=== PATIENT | male | born 1990 | race African-American/Black ===

== ENCOUNTER 2018-02-25 15:32 | Emergency (ER) | payer OTHER ==
[2018-02-25] MEDS ORDERED: Morphine INJ* 4 MG/ML 1 ML CARPUJECT IV ONE (17:54)
[2018-02-25] MEDS ORDERED: Ondansetron ODT TAB* 4 MG SL ONE (17:54)
[2018-02-25] MEDS ORDERED: Morphine VIAL* 4 MG/ML VIAL (1 ml vial) IV ONE (18:23)
[2018-02-25] MEDS ORDERED: Vancomycin(*) 1,250 MG in NS 0.9% 250 ML* 250 ML IVPB ONE (18:44)
[2018-02-25] MEDS ORDERED: NS 0.9% 1000 ML* 3,000 ML IV ONE (18:44)
--- NOTE | 2018-02-25 18:48 | RAD ---
Indication: Left leg edema and pain.. Duplex Doppler sonography of the deep venous system of the left lower extremity deep venous system was performed. Bilaterally the common femoral veins appear patent and compressible. Left proximal greater saphenous vein, proximal deep femoral vein, femoral vein, popliteal vein, posterior tibial veins and peroneal veins appear patent and compressible. IMPRESSION: NO EVIDENCE OF DEEP VENOUS THROMBOSIS IS IDENTIFIED.
[2018-02-25 18:58] LABS: ABS Basophils 0 10^3/ul (0-0.2); ABS Eosinophils 0.2 10^3/ul (0-0.6); ABS Lymphocytes 1.4 10^3/ul (1.0-4.8); ABS Monocytes 1.3 10^3/ul (0-0.8); ABS Neutrophils 9.7 10^3/ul (1.5-7.7); ABS Nucleated RBC 0 10^3/ul; Eosinophil % 1.8 % (0-6); Hematocrit 29 % (42-52); Hemoglobin 9.9 g/dl (14.0-18.0); Lymphocyte % 11.4 % (25-47); Mean Corpuscular HGB Conc 34 g/dl (31-36); Mean Corpuscular Hemoglobin 30 pg (27-31); Mean Corpuscular Volume 90 fL (80-94); Mean Platelet Volume 7.8 um3 (7.4-10.4); Nucleated Red Blood Cells % 0; Platelet Count 439 10^3/ul (150-450); Red Blood Count 3.26 10^6/ul (4.0-5.4); Red Cell Distribution Width 14 % (10.5-15); White Blood Count 12.7 10^3/ul (3.5-10.8)
--- NOTE | 2018-02-25 19:02 | ED ---
Jose Isaacs Stephanie, scribed for Aniceto Ch MD on 02/25/18 at 1805 . HPI Febrile Illness - HPI Summary HPI Summary: The pt is a 27 y/o M [facility] correctional officers to the ED with c/o fever that began over the past few days. Symptoms include chills, L calf pain and L knee pain. Pt states he feels like his leg is in a microwave. He denies CP and SOB. The pt had ACL repair surgery on 02/18/18. There are dave and 2 incisions at surgical site. He states his surgery was completed at [facility]. He is taking ibuprofen and aspirin for his pain. He rates his pain as a 10 out of 10 in severity. - History of Current Complaint Chief Complaint: EDGeneral Time Seen by Provider: 02/25/18 17:17 Hx Obtained From: Patient Onset/Duration: Started Days Ago, Still Present Timing: Constant Current Severity: Severe Pain Intensity: 10 Pain Scale Used: 0-10 Numeric Aggravating Factors: Nothing Alleviating Factors: Nothing Associated Signs and Symptoms: Chills, Leg Swelling, Night Sweats, Other: - L calf pain and L knee pain - Allergy/Home Medications Allergies/Adverse Reactions: Allergies Allergy/AdvReac Type Severity Reaction Status Date / Time No Known Allergies Allergy Verified 02/25/18 15:42 Home Medications: Home Medications Naproxen TAB* [Naprosyn 375 mg TAB*] 500 mg PO BID 02/25/18 [History Confirmed 02/25/18] PMH/Surg Hx/FS Hx/Imm Hx Sensory History: Denies: Hx Legally Blind EENT History: Denies: Hx Deafness - Surgical History Surgery Procedure, Year, and Place: ACL repair- 02/18/18 - Immunization History Immunizations Up to Date: Yes Infectious Disease History: No Infectious Disease History: Denies: Traveled Outside the [place] in Last 30 Days - Family History Known Family History: Positive: Other - denies blood clots Negative: Renal Disease - Social History Occupation: Unemployed Lives: Assisted - correctional facility Alcohol Use: None Hx Substance Use: No Substance Use Type: Reports: None Hx Tobacco Use: Yes Smoking Status (MU): Light Every Day Tobacco Smoker Have You Smoked in the Last Year: Yes Review of Systems Positive: Fever, Chills Negative: Erythema Negative: Sore Throat Negative: Chest Pain Negative: Shortness Of Breath, Cough Negative: Abdominal Pain, Vomiting, Nausea Negative: dysuria, hematuria Positive: Edema - L LE, Other - L calf pain, L knee pain. Negative: Myalgia Negative: Rash Neurological: Negative - dizziness All Other Systems Reviewed And Are Negative: Yes Physical Exam - Summary Physical Exam Summary: Constitutional: Well-developed, Well-nourished, Alert. (-) Distressed Skin: Warm, Dry HENT: Normocephalic; Atraumatic Eyes: Conjunctiva normal Neck: Musculoskeletal ROM normal neck. (-) JVD, (-) Stridor, (-) Tracheal deviation Cardio: Rhythm regular, rate normal, Heart sounds normal; Intact distal pulses; The pedal pulses are 2+ and symmetric. Radial pulses are 2+ and symmetric. (-) Murmur Pulmonary/Chest wall: Effort normal. (-) Respiratory distress, (-) Wheezes, (-) Rales Abd: Soft, (-) Tenderness, (-) Distension, (-) Guarding, (-) Rebound Musculoskeletal: L leg below knee is hot to touch and swollen, not focal around incision, L knee effusion Lymph: (-) Cervical adenopathy Neuro: Alert, Oriented x3 Psych: Mood and affect Normal Triage Information Reviewed: Yes Vital Signs On Initial Exam: Initial Vitals Temp Pulse Resp BP Pulse Ox 99.1 F 106 16 138/88 99 02/25/18 15:37 02/25/18 15:37 02/25/18 15:37 02/25/18 15:37 02/25/18 15:37 Vital Signs Reviewed: Yes Diagnostics - Vital Signs Vital Signs Temp Pulse Resp BP Pulse Ox 02/25/18 15:37 99.1 F 106 16 138/88 99 - Laboratory Lab Results: Lab Results 02/25/18 Range/Units 18:51 WBC 12.7 H (3.5-10.8) 10^3/ul RBC 3.26 L (4.0-5.4) 10^6/ul Hgb 9.9 L (14.0-18.0) g/dl Hct 29 L (42-52) % MCV 90 (80-94) fL MCH 30 (27-31) pg MCHC 34 (31-36) g/dl RDW 14 (10.5-15) % Plt Count 439 (150-450) 10^3/ul MPV 7.8 (7.4-10.4) um3 Neut % (Auto) 76.2 (38-83) % Lymph % (Auto) 11.4 L (25-47) % [place] % (Auto) 10.3 H (0-7) % Eos % (Auto) 1.8 (0-6) % Baso % (Auto) 0.3 (0-2) % Absolute Neuts (auto) 9.7 H (1.5-7.7) 10^3/ul Absolute Lymphs (auto) 1.4 (1.0-4.8) 10^3/ul Absolute Monos (auto) 1.3 H (0-0.8) 10^3/ul Absolute Eos (auto) 0.2 (0-0.6) 10^3/ul Absolute Basos (auto) 0 (0-0.2) 10^3/ul Absolute Nucleated RBC 0 10^3/ul Nucleated RBC % 0 Result Diagrams: 02/25/18 18:51 Lab Statement: Any lab studies that have been ordered have been reviewed, and results considered in the medical decision making process. - Additional Comments Diagnostic Additional Comments: Venous Doppler Study Reveals: NO EVIDENCE OF DEEP VEIN THROMBOSIS IS IDENTIFIED. ED physician has reviewed this report. Course/Dx - Course Course Of Treatment: At 18:42, ED physician spoke to Dr. Cohen who recommend transfer to [facility]. The pt is nontoxic in appearance. No DVT seen on US. PT WILL BE XFERED FOR CONTINUITY OF SURGICAL CARE AT [facility] - Diagnoses Provider Diagnoses: Post-operative infection Discharge - Sign-Out/Discharge Documenting (check all that apply): Discharge/Admit/Transfer - Transfer - Discharge Plan Condition: Stable Disposition: TRANS HIGHER LVL OF CARE FAC Referrals: Bub[facility] SEALS,Fransisca Durant [Primary Care Provider] - Additional Instructions: Return to the ED for new or worsening symptoms. - Billing Disposition and Condition Condition: STABLE Disposition: Trans Higher Lvl of Care Fac The documentation as recorded by the Jose polo Stephanie accurately reflects the service I personally performed and the decisions made by , Aniceto Ch MD.
[2018-02-25 19:06] LABS: INR 1.34 (0.77-1.02)
[2018-02-25 19:15] LABS: EGFR Non-African American 124.9 (>60)
[2018-02-25 19:31] VITALS: BP 138/68
== END 2018-02-25 19:30 | disposition short-term general hospital (02) ==
LOC: EDBD → ED 15:32
DX: T81.4XXA Infection following a procedure, initial encounter (principal); R50.9 Fever, unspecified; M79.662 Pain in left lower leg; M25.562 Pain in left knee; F17.200 Nicotine dependence, unspecified, uncomplicated
CPT/HCPCS: 36415; 80053; 83605; 84484; 85025; 85610; 85730; 86141; 87040; 96374; 99283; A9270-GY; J2270; J3370